=== PATIENT | male | born 1995 | race Caucasian/White ===

== ENCOUNTER 2019-05-01 14:37 | Emergency (ER) | payer SELFPAY ==
[~2019-05-01] VITALS: Ht 170.2 cm; Wt 83.9 kg
[2019-05-01 14:42] VITALS: Ht 170.2 cm; Wt 83.9 kg
[2019-05-01 17:08] VITALS: BP 115/77
== END 2019-05-01 17:08 | disposition home or self-care (01) ==
LOC: ED 14:37
DX: R05 Cough (principal); R50.9 Fever, unspecified; J02.9 Acute pharyngitis, unspecified; M79.10 Myalgia, unspecified site
CPT/HCPCS: 87804; Q0092